=== PATIENT | male | born 1960 | race Caucasian/White ===

== ENCOUNTER → 2021-06-20 | Outpatient (CLI) | payer BC ==
--- NOTE | 2021-06-20 17:04 | RAD ---
EXAM: Left hip, 2 views; left knee, 2 views. HISTORY: Pain. COMPARISON: None. FINDINGS: Left hip: 2 views of the greater obtained. There is no fracture, dislocation or subluxation. Left knee: 2 views of the left knee are obtained. There is no fracture, dislocation or subluxation. T here is no joint effusion. There is minimal enthesopathy along the superior patella. IMPRESSION: No acute osseous finding. Electronically signed by: Kalli Pickens MD (06/20/2021 5:01 PM) [id number]
== END ==
LOC: RAD 16:27
PROVIDERS: ATTEND Family Medicine
DX: M25.562 Pain in left knee (principal); M25.552 Pain in left hip
CPT/HCPCS: 73502; 73560

== ENCOUNTER → 2021-07-05 | Outpatient (CLI) | payer BC ==
[2021-07-05 09:17] LABS: BASO # 0.1 x10^3/uL (0.0-0.2); BASO % 1 % (0-3); EOS # 0.3 x10^3/uL (0.0-0.7); EOS % 5 % (0-3); HEMATOCRIT 43.6 % (39.0-53.0); HEMOGLOBIN 14.2 g/dL (13.0-17.5); LYMPH # 1.2 x10^3/uL (1.0-4.8); LYMPH % 20 % (24-48); MEAN CORPUSCULAR HEMOGLOBIN 30 pg (25-35); MEAN CORPUSCULAR HGB CONC 33 g/dL (31-37); MEAN CORPUSCULAR VOLUME 93 fL (79-100); MONO # 0.6 x10^3/uL (0.0-1.1); MONO % 10 % (0-9); NEUT # 3.9 x10^3uL (1.8-7.7); NEUT % 64 % (31-73); PLATELET COUNT 196 x10^3/uL (140-400); RED BLOOD COUNT 4.71 x10^6/uL (4.30-5.70); RED CELL DISTRIBUTION WIDTH 13.7 % (11.5-14.5); WHITE BLOOD COUNT 6.1 x10^3/uL (4.0-11.0)
[2021-07-05 10:34] LABS: SEDIMENTATION RATE 3 (0-15)
[2021-07-06 22:07] LABS: ANA INTERP Positive (.)
== END ==
LOC: LAB 08:05
PROVIDERS: ATTEND Family Medicine
DX: M25.562 Pain in left knee (principal); M25.552 Pain in left hip
CPT/HCPCS: 36415; 85025; 85651; 86038; 86140